=== PATIENT | female | born 1985 | race Caucasian/White ===

== ENCOUNTER 2023-04-03 09:20 | Outpatient (REF) | payer BC, SELFPAY | END 2023-04-03 09:21 | disposition home or self-care (01) | LOC: NFLDREF 09:20 | PROVIDERS: PCP Family Medicine; Referring Provider Family Medicine; Visit Provider Family Medicine | DX: R53.83 Other fatigue (principal); Z13.220 Encounter for screening for lipoid disorders; Z13.228 Encounter for screening for other metabolic disorders | CPT/HCPCS: 80053; 80061; 84443 ==